=== PATIENT | female | born 1995 | race African-American/Black ===

== ENCOUNTER 2022-10-12 23:14 | Emergency (ER) | payer MEDICAID ==
[2022-10-13] MEDS ORDERED: Acetaminophen 500 MG TAB ONE (01:08)
[2022-10-13 01:12] LABS: #Monocytes 0.6 10x3/uL (0.0-1.1); #Neutrophils 2.7 10x3/uL (1.5-8.4); %Basophils 0.4 % (0.0-2.0); %Eosinophils 0.4 % (0.0-6.0); %Lymphocytes 39.4 % (18.0-47.0); %Monocytes 11.3 % (0.0-10.0); %Neutrophils 48.1 % (40.0-75.0); Bilirubin Neg (Negative); Blood, Urine Negative (Negative); Clarity Clear (Clear); Glucose, Urine (Dipstick) Normal (Negative); Hemoglobin 13.7 g/dL (12.0-15.5); Ketone, Urine Negative (Negative); Leukocyte 25 (Negative); Mean Corpuscular HGB CONC 33.8 g/dL (32.0-36.0); Mean Corpuscular Volume 85.6 fl (81.6-98.3); Mean Platelet Volume 9.8 fl (7.4-10.4); Nitrite Negative (Negative); Platelet Count 262 10x3/uL (150-450); Protein, Urine (Dipstick) Negative (Neg-Trace); RBC Distribution Width 13.5 % (11.5-14.5); Red Blood Cell (RBC) Count 4.73 10x6/uL (3.90-5.03); Specific Gravity, Urine 1.005 (1.005-1.030); Urobilinogen Normal mg/dL (Less than 2); White Blood Cell (WBC) Count 5.6 10x3/uL (3.5-10.5)
[2022-10-13 01:13] LABS: Pregnancy Test - Urine (BHCG) Negative (Negative); Pregu Control Background? CLEAR/WHITE (CLR/WHITE); Pregu Control Bar Appear? YES (CONTROL BAR); Specific Gravity 1.005 (1.002-1.036)
[2022-10-13 01:22] LABS: Bacteria/HPF Rare-Few HPF (None Seen); RBC/HPF 0-3 HPF (0-3); Squamous Epithelial 0-3 HPF (0-3); Transitional Epithelial 0-3 HPF (None Seen)
[2022-10-13 01:55] LABS: SARS-CoV-2 NAA Rapid Test Not Detected (NotDetected)
== END 2022-10-13 02:55 | disposition home or self-care (01) ==
LOC: CSHERS 23:14
DX: R50.9 Fever, unspecified (principal); M79.622 Pain in left upper arm; R10.30 Lower abdominal pain, unspecified; J45.909 Unspecified asthma, uncomplicated; Z79.899 Other long term (current) drug therapy; Z20.822 Contact with and (suspected) exposure to COVID-19
CPT/HCPCS: 81003; 81015; 81025; 83605; 85025; 99283